=== PATIENT | female | born 1990 | race Caucasian/White ===

== ENCOUNTER 2021-05-30 14:07 | Emergency (ER) | payer OTHER ==
[2021-05-30] MEDS ORDERED: LACTATED RINGERS SOLUTION 1000 ML INFUS.BAG IV ONE (14:34)
[2021-05-30 15:07] LABS: BASO % 0.9 % (0-2.0); EOS % 0.7 % (0-4.5); HEMATOCRIT 40.2 % (32.4-45.2); HEMOGLOBIN 13.8 GM/dL (10.7-15.3); LYMPH % 29.2 % (8-40); MCH 30.3 pg (25.7-33.7); MCHC 34.4 g/dl (32.0-36.0); MEAN CELL VOLUME 88.2 fl (80-96); MEAN PLT VOLUME 9.3 fl (7.5-11.1); MONO % 7.1 % (3.8-10.2); NEUT % 62.1 % (42.8-82.8); PLATELET COUNT 260 10^3/uL (134-434); RBC 4.56 M/mm3 (3.60-5.2); RDW 13.6 % (11.6-15.6); WHITE BLOOD COUNT 6.7 K/mm3 (4.0-10.0)
[2021-05-30 15:09] VITALS: TEMP 98.4; BMI 25.1
[2021-05-30 15:24] LABS: CALCIUM 8.6 mg/dL (8.5-10.1)
[2021-05-30 15:25] LABS: ALBUMIN 3.6 g/dl (3.4-5.0); BLOOD UREA NITROGEN 10.7 mg/dL (7-18); MAGNESIUM 1.9 mg/dL (1.8-2.4)
[2021-05-30 15:28] LABS: CREATININE 0.8 mg/dL (0.55-1.3)
[2021-05-30 15:30] LABS: BILIRUBIN,TOTAL 0.3 mg/dL (0.2-1); TOT PROT 7.4 g/dl (6.4-8.2)
[2021-05-30 17:02] VITALS: BP 110/62; PULSE 78
== END 2021-05-30 17:02 | disposition home or self-care (01) ==
LOC: JER 14:07
DX: R55 Syncope and collapse (principal)
CPT/HCPCS: 36415; 80053; 83735; 84703; 85025; 93005; 93010; 99284-25